=== PATIENT | female | born 1975 | race Caucasian/White ===

== ENCOUNTER 2023-09-05 11:09 | Emergency (ER) | payer OTHER ==
[~2023-09-05] VITALS: Ht 165.1 cm; Wt 90.7 kg
[~2023-09-05 11:09] MED LIST: Acetaminophen325 M1 PO; Amrix15 MG PO; BASAGLAR K100 UNIT/3 SC; Bactrim Ds Tab1 EACH PO; CEPH500 PO; CETI5 PO; CITA20 PO; CRUTCH4 UD; CYAN1000I IM; Cipro500 MG PO; EUTHYROX75 MC1 PO; FENOFIBRATE; HYDCHL25 PO; IBUP600 PO; INSLI100I SC; INSULANI SUBQ; INSULANPEN SC; INSULISPEN SUBQ; LACT PO; LEVO750 PO; LIPITOR80 MG PO; LISI5 PO; METF500 PO; METR500 PO; NAPR250 PO; NAPR500 PO; NYST237S MT; OMEP20ER PO; OXYACE5T PO; PANTOPRAZOLE SO2010 PO; PIOG45 PO; RANI150 PO; ROSU10TA PO; Vibramycin100 MG PO; XIFAXAN550 MG PO; Zofran Odt4 MG SL; [UNRECOGNIZED DRUG - OTHER]
[2023-09-05] MEDS ORDERED: JANUMET 50-5001 EACH (11:51)
[2023-09-05 11:52] LABS: BASOPHILS ABSOLUTE AUTO 0.01 K/mm3 (0.00-0.23); BASOPHILS PERCENT AUTO 1 % (0-2); EOSINOPHILS ABSOLUTE AUTO 0.03 K/mm3 (0.00-0.68); EOSINOPHILS PERCENT AUTO 2 % (0-6); Hematocrit 32.2 % (33.0-51.0); Hemoglobin 10.5 g/dL (11.5-16.0); IMMATURE GRAN ABSOLUTE AUTO 0.01 K/mm3 (0.00-0.10); IMMATURE GRAN PERCENT AUTO 1 % (0-1); LYMPHOCYTES ABSOLUTE AUTO 0.35 K/mm3 (0.84-5.20); LYMPHOCYTES PERCENT AUTO 17 % (21-46); MONOCYTES ABSOLUTE AUTO 0.25 K/mm3 (0.16-1.47); MONOCYTES PERCENT AUTO 12 % (4-13); Mean Corpuscular HGB 30.7 pg (26.0-34.0); Mean Corpuscular HGB Conc 32.6 g/dL (31.5-36.5); Mean Corpuscular Volume 94 fL (80-100); Mean Platelet Volume 11.1 fL (9.1-12.4); NEUTROPHILS ABSOLUTE AUTO 1.37 K/mm3 (1.96-9.15); NEUTROPHILS PERCENT AUTO 68 % (41-73); Platelet Count 64 K/mm3 (150-400); RDW Coefficient Variation 13.1 % (11.7-14.2); RDW Standard Deviation 45.3 fL (35.1-46.3); Red Blood Cell Count 3.42 M/mm3 (3.80-5.20); White Blood Cell Count 2.02 K/mm3 (4.00-11.30)
[2023-09-05] MEDS ORDERED: FURO20 (11:55)
[2023-09-05 12:18] LABS: Albumin, Blood 3.3 g/dL (3.4-5.0); Albumin/Globulin Ratio 0.9 (0.8-1.8); Bilirubin, Total 0.3 mg/dL (0.1-1.0); Bun/Creatinine Ratio 23.9 (12.0-20.0); Calcium, Blood 8.6 mg/dL (8.5-10.1); Creatinine, Blood 0.55 mg/dL (0.40-1.00); Globulin, Blood 3.6 g/dL (2.2-4.0); Potassium, Blood 3.9 mmol/L (3.5-5.5); Total Protein, Blood 6.9 g/dL (6.4-8.2)
[2023-09-05] MEDS ORDERED: SULTRIDS PO (12:52)
[2023-09-05 16:11] VITALS: BP 137/89
== END 2023-09-05 16:10 | disposition home or self-care (01) ==
LOC: ER 11:09
PROVIDERS: Physician Assistant
DX: L03.213 Periorbital cellulitis (principal); L03.211 Cellulitis of face; H60.11 Cellulitis of right external ear; D72.819 Decreased white blood cell count, unspecified; E11.9 Type 2 diabetes mellitus without complications; I10 Essential (primary) hypertension; K74.60 Unspecified cirrhosis of liver; Z86.14 Personal history of Methicillin resistant Staphylococcus aureus infection; Z88.0 Allergy status to penicillin; Z79.890 Hormone replacement therapy; Z79.84 Long term (current) use of oral hypoglycemic drugs; Z79.899 Other long term (current) drug therapy
CPT/HCPCS: 80053; 85025; 96365; 96366; 96367; 96375; 99283-25; J0696; J1885; J3370; J7050

== ENCOUNTER 2024-07-04 16:42 | Inpatient (IN) | payer OTHER ==
[~2024-07-04] VITALS: Ht 165.1 cm; Wt 93.8 kg
[~2024-07-04 16:42] MED LIST changes: +FURO20 PO; +JANUMET 50-1,01 EACH PO; +SULTRIDS PO
[2024-07-04 16:56] VITALS: BP 104/57
[2024-07-04] MEDS ORDERED: Acetaminophen 325 MG TABLET PO PRN (17:05)
[2024-07-04] MEDS ORDERED: NS 500 ML IV SCH (17:30)
--- NOTE | 2024-07-04 19:15 | NUR ---
DIRECT ADMIT/SHIFT SUMMARY PT A DIRECT ADMIT FROM [facility]. ARRIVED AT 1700. IV PLACED. DOCTOR KAROLYN NOTIFIED OF PT'S ARRIVAL, GAVE TELEPHONE ORDERS. ORDERS ENTERED INTO [employer]. NO ACUTE CHANGES SINCE ADMIT. PT IS INDEPENDENT IN THE ROOM, AT THE BS. CALL LIGHT WITHIN REACH, BED LOCKED AND IN THE LOWEST POSITION. WILL REPORT TO ONCOMING NURSE.
[2024-07-04 19:22] VITALS: BP 104/53
[2024-07-04] MEDS ORDERED: Nicotine 21 MG PATCH TOP SCH (21:00)
--- NOTE | 2024-07-04 23:30 | NUR ---
HGOSPITALIST CONTACTED. HOSPITALIST CONTACTED AND NOTIFIED THAT BLOOD BANK HAS NOT BEEN ABLE TO MATCH PATIENT TO BLOOD AT THIS TIME AND HAS TESTED AGAINST AVALIABLE BLOOD. SAVANA ORDERED FOR A STAT H&H AND THAT A DECISION TO DO A HIGH RISK INFUSION WILL BE MADE OFF OF THIS LAB RESULT.
[2024-07-04 23:48] LABS: Hematocrit 19.8 % (33.0-51.0)
[2024-07-04 23:51] LABS: Hemoglobin 5.7 g/dL (11.5-16.0)
--- NOTE | 2024-07-04 23:56 | NUR ---
HOSPITALIST SAVANA CONTACTED. SAVANA NOTIFIED OF CRITICAL Hgb OF 5.7. BLOOD BANK HAS BEEN UNABLE TO MATCH PATIENT TO BLOOD AT THIS TIME. PER SAVANA MCCOY ORDERED FOR AN IRON DEFICIENCY PANEL. AT THIS TIME SAVANA STATES THAT PATIENTS Hgb IS NOT DROPPING AT A FAST RATE SO WE WILL RE-EVALUATE Hgb WITH MORNING LABS.
[2024-07-05] VITALS (7 sets, daily range): BP systolic 100–115; BP diastolic 56–69
[2024-07-05 00:11] LABS: Percent Saturation 3.7 % (15.0-50.0)
[2024-07-05] MEDS ORDERED: Sod Ferric Gluc Complx/Sucrose 125 MG in NS 100 ML IV SCH (00:46)
--- NOTE | 2024-07-05 00:57 | NUR ---
CALL RECEIVED FROM BLOOD BANK. BLOOD [employer] UNABLE TO GET A HOLD OF PATHOLOGIST, UNTIL APPROVAL FROM PATHOLOGIST BLOOD BANK IS UNABLE TO RELEASES A UNIT OF HIGH RISK TRANSFUSION PRBC. BLOOD [employer] WITH KEEP IN CONTACT WITH THIS RN ON UPDATES, BLOOD BANK TO SEND THE RELEASE FOR THE HOSPITALIST TO HAVE ON RECORD WHILE AWAITING RESPONSE FROM PATHOLOGISST.
--- NOTE | 2024-07-05 01:02 | NUR ---
CALL TO HOSPITALIST. NOTIFIED OF BLOOD BANK UNABLE TO REACH THE PATHOLOGIST AT THIS TIME. DR. COTTO ORDERED FOR PATIENT TO HAVE IRON D/T LOW IRON LABS AND ADDITIONAL LABS FOR PATIENT. TO NOTIFY DR. COTTO WHEN PATHOLOGIST IS REACHED.
[2024-07-05 02:02] LABS: Albumin, Blood 3.2 g/dL (3.4-5.0); Bilirubin, Direct 0.1 mg/dL (0.0-0.3); Bilirubin, Indirect 0.3 mg/dL (0.1-0.7); Bilirubin, Total 0.4 mg/dL (0.1-1.0); Bun/Creatinine Ratio 21.7 (12.0-20.0); Calcium, Blood 8.5 mg/dL (8.5-10.1); Creatinine, Blood 0.78 mg/dL (0.40-1.00); Globulin, Blood 3.3 g/dL (2.2-4.0); Potassium, Blood 3.7 mmol/L (3.5-5.5); Total Protein, Blood 6.5 g/dL (6.4-8.2)
[2024-07-05 02:05] LABS: International Normalized Ratio 1.02; Prothrombin Time Results 10.9 Sec (9.7-11.5)
[2024-07-05] MEDS ORDERED: NS 250 ML IV PRN (02:05)
[2024-07-05 02:14] LABS: BASOPHILS ABSOLUTE AUTO 0.02 K/mm3 (0.00-0.23); BASOPHILS PERCENT AUTO 1 % (0-2); EOSINOPHILS ABSOLUTE AUTO 0.05 K/mm3 (0.00-0.68); EOSINOPHILS PERCENT AUTO 3 % (0-6); IMMATURE GRAN ABSOLUTE AUTO 0.01 K/mm3 (0.00-0.10); IMMATURE GRAN PERCENT AUTO 1 % (0-1); LYMPHOCYTES ABSOLUTE AUTO 0.57 K/mm3 (0.84-5.20); LYMPHOCYTES PERCENT AUTO 34 % (21-46); MONOCYTES ABSOLUTE AUTO 0.34 K/mm3 (0.16-1.47); MONOCYTES PERCENT AUTO 20 % (4-13); Mean Corpuscular HGB 21.2 pg (26.0-34.0); Mean Corpuscular HGB Conc 28.4 g/dL (31.5-36.5); Mean Corpuscular Volume 75 fL (80-100); NEUTROPHILS ABSOLUTE AUTO 0.71 K/mm3 (1.96-9.15); NEUTROPHILS PERCENT AUTO 42 % (41-73); Platelet Count 101 K/mm3 (150-400); RDW Coefficient Variation 21.1 % (11.7-14.2); RDW Standard Deviation 57.1 fL (35.1-46.3); RETICULOCYTE ABSOLUTE 0.0549 M/mm3 (0.0200-0.1100); RETICULOCYTE COUNT PERCENT 2.11 % (0.50-2.50)
[2024-07-05 02:28] LABS: Hemoglobin 5.5 g/dL (11.5-16.0); Mean Platelet Volume 11.1 fL (9.1-12.4)
[2024-07-05 02:29] LABS: Hematocrit 19.4 % (33.0-51.0)
[2024-07-05] MEDS ORDERED: FLU VACC TS2024-25(6MOS UP)/PF 45 MCG/0.5 ML SYRINGE IM ONE (03:05)
[2024-07-05] MEDS ORDERED: Ondansetron 4 MG TAB PO PRN (03:10)
[2024-07-05 05:10] LABS: Hematocrit 19.7 % (33.0-51.0)
--- NOTE | 2024-07-05 05:13 | NUR ---
SHIFT SUMMARY/PATIENT TRANSFER. PATIENT TRANSFERED TO PCU. JATIN RN TO ASSUME PATIENT CARE. PATIENT TRANSFERED WITH ALL PERSONAL BELONGINGS AND HOME CPAP MACHINE-REPORT GIVEN TO JATIN PRIOR TO ARRIVAL TO PCU. PATIENT IS A&OX4. PATIENTS Hgb DROPPING THIS SHIFT-PATIENT NOT COMPATABLE TO AVALIABLE BLOOD AT BLOOD BANK-PATIENT TRANSFERED TO PCU FOR INCREASED MONITORING AND POSSIBLE EMERGENCY HIGH RISK BLOOD TRANSFUSION PENDING TRENDING Hgb LEVELS. PATIENTS NOTIFIED THAT PATIENT TRANSFERED TO PCU4. BED LOCKED AT PCU AND JATIN RN ASSUMED PATIENT CARE.
[2024-07-05 05:19] LABS: Hemoglobin 5.6 g/dL (11.5-16.0)
[2024-07-05 07:27] LABS: Performing Lab BLOODWORKS IRL
[2024-07-05 09:10] LABS: Hematocrit 20.2 % (33.0-51.0)
[2024-07-05 09:21] LABS: Hemoglobin 5.8 g/dL (11.5-16.0)
--- NOTE | 2024-07-05 11:04 | NUR ---
NURSE NOTE PATIENT FAMILY TOOK HER DOWN THE [place] TO GET A SNACK. LIEN CHANGED AND ROOM CLEANED UP WHILE PATIENT WAS OUT OF ROOM.
--- NOTE | 2024-07-05 14:04 | NUR ---
NURSE NOTE DR. BARRON CONTACTED VIA PHONE TO ORDER HOME MEDICATED AT THIS TIME.
[2024-07-05] MEDS ORDERED: [UNRECOGNIZED DRUG - REMARK] XX ONE (14:30)
[2024-07-05] MEDS ORDERED: MetFORMIN HCl 500 mg PO SCH (17:00)
--- NOTE | 2024-07-05 18:07 | NUR ---
SHIFT SUMRY PATIENT IS A+O X4, ABLE TO MAKE NEEDS KNOWN. MOVES ALL EXTERMITIES EQUALLY IN BED, ABLE TO REPOSTION SELF IN BED. SBA ASSIT TO THE BATHROOM FOR VOIDING. VSS. LAST HGB LEVEL 0F 5.8 WHICH IS TREDNING UP. AWAITING UNIT OF BLOOD FOR POSSIBLE TRANSFUSTION. PATIENT HOME MEDICATIONS ORDERED. CALLED VIA PHONE TO ASK IF HE WANTED TO ORDER REPEAT LABS, HE SAID POSSIBLE REDRAW IN THE MORNING, NO ORDERS AT THIS TIME. CALL LIGHT IN REACH, WILL CONTINUE TO TREAT UNTIL END OF SHIFT.
[2024-07-05 20:35] LABS: Hematocrit 19.6 % (33.0-51.0)
[2024-07-05 20:46] LABS: Hemoglobin 5.6 g/dL (11.5-16.0)
--- NOTE | 2024-07-05 20:57 | NUR ---
ASSUMPTION OF CARE NOTE. PT IS AOX4, PLEASANT, COOPERATIVE WITH CARE, CALLS APPROPRIATELY, ABLE TO MAKE NEEDS KNOWN. PT EXPRESSED FRUSTRATION THAT DAY SHIFT DOCTOR DID NOT ORDER REPEAT BLOOD LEVEL LABS CONSIDERING THAT SHE WAS UNDER THE IMPRESSION THAT WAS THE INDICATION FOR HER VISIT. LAST HGB DRAW AT TIME OF THAT DISCUSSION WAS AT ABOUT ~0900 THIS MORNING. DISCUSSED WITH RESIDENT DR. MC WHO ORDERED A STAT H+H AND A REPEAT TO BE COMPLETED 12 HOURS LATER. PT WAS HAPPY WITH THIS DECISION. 2020 HGB CAME BACK AT 5.6, LOWER THAN PREVIOUS VALUE OF 5.8. BREAK RN EVE CASE AGAIN SPOKE WITH DR. MC WHO DIRECTED TO CONTINUE TO MONITOR UNLESS PT BECOMES MORE SYMPTOMATIC OR HEMODYNAMICALLY UNSTABLE. PT OTHERWISE DOING WELL. DENIES PAIN. VITALS STABLE. BED LOCKED IN LOWEST POSITION. CALL LIGHT LEFT WITHIN REACH. CONTINUING TO MONITOR.
[2024-07-05] MEDS ORDERED: Citalopram Hydrobromide 20 MG Tab PO SCH (21:00)
[2024-07-05] MEDS ORDERED: Furosemide 20 MG Tab PO SCH (21:00)
[2024-07-05] MEDS ORDERED: Atorvastatin 40 MG Tab PO SCH (21:00)
[2024-07-05] MEDS ORDERED: Lisinopril 20 MG Tab PO SCH (21:00)
[2024-07-05] MEDS ORDERED: Lactobacil 2-S.Thermo-Bifido 1 1 Cap PO SCH (21:00)
[2024-07-06] VITALS (13 sets, daily range): BP systolic 100–120; BP diastolic 53–67
--- NOTE | 2024-07-06 01:21 | NUR ---
0000 NOTE. PT SLEEPING AT TIME OF ENTERING ROOM FOR VITALS. REMAINS AOX4, PLEASANT, COOPERATIVE. WEARING HOME CPAP, MAINTAINING ADEQUATE SATURATION. VITALS STABLE. REPORTS VOIDING SEVERAL TIMES THIS SHIFT THUS FAR WITH PCT. PT DENIES FURTHER NEEDS. BED LOCKED IN LOWEST POSITION. CALL LIGHT LEFT WITHIN REACH. CONTINUING TO MONITOR.
--- NOTE | 2024-07-06 04:47 | NUR ---
shift summary. shift has been unremarkable. pt condition unchanged, see previous notes for details. bed locked in lowest position. call light left within reach. continuing to monitor.
[2024-07-06] MEDS ORDERED: Levothyroxine Sodium 0.075 MG Tab PO SCH (06:00)
[2024-07-06] MEDS ORDERED: Enoxaparin 40 MG/0.4 ML SYR SC SCH (07:00)
[2024-07-06] MEDS ORDERED: Alogliptin Benzoate 25 MG TAB PO SCH (09:00)
[2024-07-06 09:16] LABS: Hematocrit 21.7 % (33.0-51.0); Hemoglobin 6.2 g/dL (11.5-16.0)
[2024-07-06 10:36] LABS: International Normalized Ratio 1.08; Prothrombin Time Results 11.5 Sec (9.7-11.5)
--- NOTE | 2024-07-06 18:03 | NUR ---
SHIFT SUMMARY: PT A&OX4. FOLLOWS COMMANDS AND MAKES NEEDS KNOWN TO STAFF. PT HAS BEEN INDEPENDENT IN HER ROOM. PT DENIES ANY CP OR SOB THROUGHOUT THE DAY. HER ONLY COMPLAINT IS THAT SHE JUST FEELS TIRED. PTS HGB HAS GONE UP SINCE YESTERDAY. PROVIDER WOULD LIKE TO CONTINUE IRON TRANSFUSIONS. NO SIGNIFICANT EVENTS HAVE HAPPENED THROUGHOUT SHIFT. WILL CONTINUE TO CARE FOR PT UNTIL END OF SH
[2024-07-06 19:26] LABS: Hematocrit 20.3 % (33.0-51.0)
[2024-07-06 19:30] LABS: Hemoglobin 5.8 g/dL (11.5-16.0)
--- NOTE | 2024-07-06 19:41 | NUR ---
SPOKE WITH DR. MC WHO SPOKE WITH DR. RENNER. PT HGB CAME BACK AT 5.8. PT REMAINS STABLE. DR. MC WOULD LIKE TO HOLD ON BLOOD TRANSFUSION FOR TIME BEING. DOCTOR TO DISCUSS WITH PATIENT. CONTINUING TO MONITOR.
[2024-07-06] MEDS ORDERED: NS 500 ML IV SCH (20:30)
[2024-07-06] MEDS ORDERED: Lisinopril 5 MG Tab PO SCH (21:00)
[2024-07-06] MEDS ORDERED: JANUMET PO SCH (21:00)
[2024-07-07] VITALS (14 sets, daily range): BP systolic 100–119; BP diastolic 48–79
--- NOTE | 2024-07-07 01:11 | NUR ---
PT BLOOD HAS FINISHED INFUSING. H+H TO BE COMPLETED POST BLOOD TRANSFUSION. PT BP WAS SOFT FOR SOME TIME BUT HAS COME UP SOME SINCE. PT FEELS "GREAT" BUT TIRED AND IS READY TO GO TO SLEEP. LUNGS REMAIN CLEAR. VITALS STABLE. BED LOCKED IN LOWEST POSITION. CALL LGIHT LEFT WITHIN REACH. CONTINUING TO MONITOR.
[2024-07-07 02:43] LABS: BASOPHILS ABSOLUTE AUTO 0.03 K/mm3 (0.00-0.23); BASOPHILS PERCENT AUTO 1 % (0-2); EOSINOPHILS ABSOLUTE AUTO 0.05 K/mm3 (0.00-0.68); EOSINOPHILS PERCENT AUTO 2 % (0-6); Hemoglobin 6.4 g/dL (11.5-16.0); IMMATURE GRAN ABSOLUTE AUTO 0.04 K/mm3 (0.00-0.10); IMMATURE GRAN PERCENT AUTO 2 % (0-1); LYMPHOCYTES ABSOLUTE AUTO 0.72 K/mm3 (0.84-5.20); LYMPHOCYTES PERCENT AUTO 31 % (21-46); MONOCYTES ABSOLUTE AUTO 0.49 K/mm3 (0.16-1.47); MONOCYTES PERCENT AUTO 21 % (4-13); Mean Corpuscular HGB 22.1 pg (26.0-34.0); Mean Corpuscular HGB Conc 29.1 g/dL (31.5-36.5); Mean Corpuscular Volume 76 fL (80-100); NEUTROPHILS ABSOLUTE AUTO 0.99 K/mm3 (1.96-9.15); NEUTROPHILS PERCENT AUTO 43 % (41-73); NRBC ABSOLUTE 0.05 K/mm3 (0.00-0.02); NRBC Auto 2.2 /100 WBC (0.0-0.2); Platelet Count 100 K/mm3 (150-400); RDW Coefficient Variation 22.4 % (11.7-14.2); RDW Standard Deviation 60.7 fL (35.1-46.3); White Blood Cell Count 2.32 K/mm3 (4.00-11.30)
[2024-07-07 03:01] LABS: Bun/Creatinine Ratio 18.2 (12.0-20.0); Calcium, Blood 8.7 mg/dL (8.5-10.1); Creatinine, Blood 0.83 mg/dL (0.40-1.00); Potassium, Blood 3.8 mmol/L (3.5-5.5)
--- NOTE | 2024-07-07 04:23 | NUR ---
SHIFT SUMMARY. SHIFT HAS GONE WELL OVERALL. PT REMAINS AOX4, PLEASANT, COOPERATIVE, ABLE TO MAKE NEEDS KNOWN. HAS BEEN ABLE TO REST COMFORTABLY IN BED SINCE FINISHING BLOOD TRANSFUSION EARLIER IN SHIFT. VITALS REMAIN STABLE. PT REPORTS FEELING "GREAT" WHEN NOT SLEEPING. UPDATED DR. SHELTON ON NEW HGB POST BLOOD TRANSFUSION. PT CONTINUES TO DENY PAIN. CONTINUES TO SATURATE WELL ON ROOM AIR WHILE AWAKE AND ON CPAP WHEN SLEEPING. REMAINS STEADY SBA TRANSFER TO BATHROOM. CONTINUES TO RUN SINUS ON TELE. SHIFT HAS BEEN OTHERWISE UNREMARKABLE. BED LOCKED IN LOWEST POSITION. CALL LIGHT LEFT WITHIN REACH. CONTINUING TO MONITOR.
[2024-07-07 06:52] LABS: Hematocrit 22.8 % (33.0-51.0); Hemoglobin 6.7 g/dL (11.5-16.0)
--- NOTE | 2024-07-07 08:00 | NUR ---
am note this rn assumed care at 0700. vital signs stable. tele sinus rhythm 70s. patient uses cpap at night. patient is alert and oriented x4. neuro is intact. patient is able to make needs known and perform adls independently. denies pain or chest pain or shortness of breath. lung sounds clear throughout. abd is soft nontender and active. see shift assessment for further detials. patient is able to perform adls independently and standby to the bathroom for safety. md noonan in the room and saw patient. plan to recfeive another unit of blood. plan of care is up to date.
[2024-07-07 09:12] LABS: HAPTOGLOBIN 256 mg/dL (30-200)
--- NOTE | 2024-07-07 10:25 | NUR ---
BLOOD STARTED blood started. patient vitals stable. this rn went over blood transfusion reactions. lung sounds clear upper lobes and dim lower
[2024-07-07 10:45] LABS: Source, Urine Clean Catch
[2024-07-07 10:50] LABS: Appearance, Urine Clear (Clear); Bilirubin, Urine Neg (Neg); Blood, Urine Neg (Neg); Color, Urine Yellow (P-Yellow); Glucose Qualitative, Urine Neg (Neg); Ketones, Urine Neg (Neg); Leukocyte Esterase, Urine Neg (Neg); Nitrite, Urine Neg (Neg); Protein, Urine 2+ (Neg); Specific Gravity, Urine 1.015 (1.003-1.022); Urobilinogen, Urine 1+ (Normal)
[2024-07-07 10:58] LABS: Hematocrit 22.8 % (33.0-51.0); Hemoglobin 6.6 g/dL (11.5-16.0)
[2024-07-07 11:23] LABS: Bacteria Rare /hpf; Hyaline Casts 0-2 /lpf (0-2); Red Blood Cells, Urine 0-2 /hpf (0-2); Squamous Epithelial Cells Mod /hpf (Few); White Blood Cells, Urine 0-2 /hpf (0-5)
[2024-07-07] MEDS ORDERED: Cyanocobalamin 1000 MCG/ML 1ML Vial IM ONE (12:15)
[2024-07-07] MEDS ORDERED: Calcium Carbonate 500 MG Tab Chew PO PRN (13:00)
--- NOTE | 2024-07-07 17:45 | NUR ---
shift summary see previous notes. vitals remain stable. no acute changes throughout the shift. patient had family in and out of the room and went on several wheelchair walks with family. plan remains up to date
--- NOTE | 2024-07-08 02:28 | NUR ---
SHIFT SUMMARY NEURO: WNL CARDIAC: LISINOPRIL HELP PER PT'S REQUEST. PULSES PRESENT. LUNGS: WNL GI/: ABD DISTENDED. NO NEW PAIN OR SIGNS OF BLEEDING. SKIN: PLAQUE PSORIASIS, SCATTERED BRUISING
[2024-07-08 05:02] VITALS: BP 116/50
[2024-07-08 05:24] LABS: BASOPHILS ABSOLUTE AUTO 0.02 K/mm3 (0.00-0.23); BASOPHILS PERCENT AUTO 1 % (0-2); EOSINOPHILS ABSOLUTE AUTO 0.04 K/mm3 (0.00-0.68); EOSINOPHILS PERCENT AUTO 2 % (0-6); Hematocrit 26.8 % (33.0-51.0); IMMATURE GRAN ABSOLUTE AUTO 0.03 K/mm3 (0.00-0.10); IMMATURE GRAN PERCENT AUTO 1 % (0-1); LYMPHOCYTES ABSOLUTE AUTO 0.64 K/mm3 (0.84-5.20); LYMPHOCYTES PERCENT AUTO 25 % (21-46); MONOCYTES ABSOLUTE AUTO 0.35 K/mm3 (0.16-1.47); MONOCYTES PERCENT AUTO 14 % (4-13); Mean Corpuscular HGB 23.7 pg (26.0-34.0); Mean Corpuscular HGB Conc 29.9 g/dL (31.5-36.5); Mean Corpuscular Volume 79 fL (80-100); NEUTROPHILS ABSOLUTE AUTO 1.51 K/mm3 (1.96-9.15); NEUTROPHILS PERCENT AUTO 58 % (41-73); Platelet Count 93 K/mm3 (150-400); RDW Coefficient Variation 22.5 % (11.7-14.2); RDW Standard Deviation 59.9 fL (35.1-46.3); Red Blood Cell Count 3.38 M/mm3 (3.80-5.20); White Blood Cell Count 2.59 K/mm3 (4.00-11.30)
[2024-07-08 05:56] LABS: Calcium, Blood 9.2 mg/dL (8.5-10.1); Creatinine, Blood 0.83 mg/dL (0.40-1.00); Potassium, Blood 3.4 mmol/L (3.5-5.5)
[2024-07-08 07:37] VITALS: BP 129/71
[2024-07-08 10:54] VITALS: BP 116/71
--- NOTE | 2024-07-08 18:21 | NUR ---
DISCHARGE: PT D/C PCU 4 @1730 VIA WHEELCHAIR. DISCHARGE INSTRUCTIONS AND EDUCATION PROVIDED. ALL BELONGINGS WITH PT.
[2024-07-10 02:45] LABS: ERYTHROPOIETIN 104 mU/mL (4-27)
[2024-07-11 10:04] LABS: ALBUMIN 3.59 g/dL (3.75-5.01); ALPHA 1 GLOBULIN 0.27 g/dL (0.19-0.46); ALPHA 2 GLOBULIN 0.73 g/dL (0.48-1.05); BETA GLOBULIN 0.83 g/dL (0.48-1.10); GAMMA 1.09 g/dL (0.62-1.51); IMMUNOFIXATION REFLEX Not Done; TOTAL PROTEIN,SERUM 6.5 g/dL (6.3-8.2)
[2024-07-11 10:27] LABS: Result SEE SEPERATE
== END 2024-07-08 18:04 | disposition home or self-care (01) | DRG 812 ==
LOC: MEDS 16:42 → PCU 07-05 03:04
PROVIDERS: Family Medicine; Internal Medicine; Internal Medicine Hematology & Oncology; Nurse Practitioner Acute Care; Student in an Organized Health Care Education/Training Program; ADMIT Internal Medicine
PROC: 30233N1 Transfusion of Nonautologous Red Blood Cells into Peripheral Vein, Percutaneous Approach (ICD-10-PCS; principal; 2024-07-07)
DX: D50.9 Iron deficiency anemia, unspecified (principal); D61.818 Other pancytopenia; Z28.21 Immunization not carried out because of patient refusal; D69.6 Thrombocytopenia, unspecified; E11.9 Type 2 diabetes mellitus without complications; K74.60 Unspecified cirrhosis of liver; I10 Essential (primary) hypertension; E78.5 Hyperlipidemia, unspecified; E03.9 Hypothyroidism, unspecified; K75.81 Nonalcoholic steatohepatitis (NASH); A49.02 Methicillin resistant Staphylococcus aureus infection, unspecified site; Z90.49 Acquired absence of other specified parts of digestive tract; Z90.710 Acquired absence of both cervix and uterus; Z90.13 Acquired absence of bilateral breasts and nipples; Z88.0 Allergy status to penicillin; Z88.8 Allergy status to other drugs, medicaments and biological substances; Z79.890 Hormone replacement therapy; Z79.899 Other long term (current) drug therapy; F17.210 Nicotine dependence, cigarettes, uncomplicated
CPT/HCPCS: 36415; 36430; 74178; 80048; 80053; 81001; 82247; 82248; 82607; 82668; 82728; 82746; 82784; 82947; 82977; 83010; 83521; 83540; 83550; 83615; 84155; 84165; 85014; 85018; 85025; 85045; 85060; 85610; 85730; 86334; 86850; 86860; 86870; 86880; 86900; 86901; 86906; 86922; 94760; 94762; A9270; C1751; J1650; J2916; J3420; J7050; P9016; Q9967

== ENCOUNTER 2024-08-25 20:09 | Emergency (ER) | payer OTHER ==
[~2024-08-25] VITALS: Ht 165.1 cm; Wt 93.4 kg
[2024-08-25 21:17] LABS: Albumin, Blood 3.6 g/dL (3.4-5.0); BASOPHILS ABSOLUTE AUTO 0.01 K/mm3 (0.00-0.23); BASOPHILS PERCENT AUTO 0 % (0-2); Bilirubin, Total 0.3 mg/dL (0.1-1.0); Bun/Creatinine Ratio 19.7 (12.0-20.0); Calcium, Blood 8.8 mg/dL (8.5-10.1); Creatinine, Blood 0.81 mg/dL (0.40-1.00); EOSINOPHILS ABSOLUTE AUTO 0.03 K/mm3 (0.00-0.68); EOSINOPHILS PERCENT AUTO 1 % (0-6); Globulin, Blood 3.7 g/dL (2.2-4.0); Hematocrit 31.7 % (33.0-51.0); IMMATURE GRAN ABSOLUTE AUTO 0.01 K/mm3 (0.00-0.10); IMMATURE GRAN PERCENT AUTO 0 % (0-1); LYMPHOCYTES ABSOLUTE AUTO 0.44 K/mm3 (0.84-5.20); LYMPHOCYTES PERCENT AUTO 19 % (21-46); MONOCYTES ABSOLUTE AUTO 0.25 K/mm3 (0.16-1.47); MONOCYTES PERCENT AUTO 11 % (4-13); Mean Corpuscular HGB 26.5 pg (26.0-34.0); Mean Corpuscular HGB Conc 31.5 g/dL (31.5-36.5); Mean Corpuscular Volume 84 fL (80-100); NEUTROPHILS PERCENT AUTO 68 % (41-73); Platelet Count 81 K/mm3 (150-400); Potassium, Blood 3.4 mmol/L (3.5-5.5); RDW Coefficient Variation 21.3 % (11.7-14.2); RDW Standard Deviation 66.4 fL (35.1-46.3); Red Blood Cell Count 3.77 M/mm3 (3.80-5.20); Total Protein, Blood 7.3 g/dL (6.4-8.2); White Blood Cell Count 2.34 K/mm3 (4.00-11.30)
[2024-08-25 23:15] VITALS: BP 125/88
== END 2024-08-25 23:20 | disposition home or self-care (01) ==
LOC: ER 20:09
PROVIDERS: Physician Assistant
DX: R42 Dizziness and giddiness (principal); I10 Essential (primary) hypertension; E11.9 Type 2 diabetes mellitus without complications; Z88.0 Allergy status to penicillin; Z88.8 Allergy status to other drugs, medicaments and biological substances; Z79.899 Other long term (current) drug therapy
CPT/HCPCS: 80053; 85025; 86850; 86900; 86901; 99284

== ENCOUNTER → 2024-11-09 | Outpatient (CLI) | payer OTHER ==
[2024-11-09 16:17] LABS: Albumin, Blood 3.5 g/dL (3.4-5.0); Albumin/Globulin Ratio 0.8 (0.8-1.8); Bilirubin, Total 0.5 mg/dL (0.1-1.0); Bun/Creatinine Ratio 16.5 (12.0-20.0); Calcium, Blood 9.2 mg/dL (8.5-10.1); Creatinine, Blood 0.79 mg/dL (0.40-1.00); Globulin, Blood 4.4 g/dL (2.2-4.0); Total Protein, Blood 7.9 g/dL (6.4-8.2)
[2024-11-09 16:53] LABS: BASOPHILS ABSOLUTE AUTO 0.03 K/mm3 (0.00-0.23); BASOPHILS PERCENT AUTO 1 % (0-2); EOSINOPHILS ABSOLUTE AUTO 0.08 K/mm3 (0.00-0.68); EOSINOPHILS PERCENT AUTO 2 % (0-6); Hemoglobin 12.3 g/dL (11.5-16.0); IMMATURE GRAN ABSOLUTE AUTO 0.01 K/mm3 (0.00-0.10); IMMATURE GRAN PERCENT AUTO 0 % (0-1); LYMPHOCYTES ABSOLUTE AUTO 0.55 K/mm3 (0.84-5.20); LYMPHOCYTES PERCENT AUTO 13 % (21-46); MONOCYTES ABSOLUTE AUTO 0.49 K/mm3 (0.16-1.47); MONOCYTES PERCENT AUTO 12 % (4-13); Mean Corpuscular HGB 28.5 pg (26.0-34.0); Mean Corpuscular HGB Conc 32.4 g/dL (31.5-36.5); Mean Corpuscular Volume 88 fL (80-100); NEUTROPHILS ABSOLUTE AUTO 3.05 K/mm3 (1.96-9.15); NEUTROPHILS PERCENT AUTO 73 % (41-73); RDW Coefficient Variation 21.3 % (11.7-14.2); RDW Standard Deviation 66.9 fL (35.1-46.3); Red Blood Cell Count 4.32 M/mm3 (3.80-5.20); White Blood Cell Count 4.21 K/mm3 (4.00-11.30)
[2024-11-09 16:54] LABS: Mean Platelet Volume 11.2 fL (9.1-12.4); Platelet Count 98 K/mm3 (150-400)
== END ==
LOC: LAB 15:59 → LAB SHORT 15:59
PROVIDERS: Emergency Medicine
DX: R10.9 Unspecified abdominal pain (principal)
CPT/HCPCS: 80053; 83690; 85025

== ENCOUNTER → 2025-01-09 | Outpatient (CLI) | payer OTHER | LOC: LAB 09:48 → LAB SHORT 09:48 | DX: R30.0 Dysuria (principal) | CPT/HCPCS: 87077; 87086; 87186 ==

== ENCOUNTER → 2025-03-26 | Outpatient (CLI) | payer OTHER ==
[2025-03-26 13:52] LABS: Source, Urine Clean Catch
== END ==
LOC: LAB 13:50 → LAB SHORT 13:50
PROVIDERS: Internal Medicine
DX: N39.0 Urinary tract infection, site not specified (principal)
CPT/HCPCS: 81015; 87086

== ENCOUNTER 2025-06-26 17:28 | Emergency (ER) | payer OTHER ==
[~2025-06-26] VITALS: Ht 165.1 cm; Wt 99.8 kg
[2025-06-26 17:33] VITALS: BP 146/93
[2025-06-26] MEDS ORDERED: RX Prepack Albuterol 1 PREPACK/6.7 GM INH UD ONE (18:15)
== END 2025-06-26 19:13 | disposition home or self-care (01) ==
LOC: ER 17:28
DX: R07.89 Other chest pain (principal); E11.9 Type 2 diabetes mellitus without complications; I10 Essential (primary) hypertension; K74.60 Unspecified cirrhosis of liver; Z90.13 Acquired absence of bilateral breasts and nipples; Z88.0 Allergy status to penicillin; Z88.8 Allergy status to other drugs, medicaments and biological substances; Z79.84 Long term (current) use of oral hypoglycemic drugs; Z79.890 Hormone replacement therapy; Z79.899 Other long term (current) drug therapy
CPT/HCPCS: 71046; 99283-25; A9270